=== PATIENT | male | born 1975 | race Caucasian/White ===

== ENCOUNTER 2019-02-04 14:13 | Emergency (ER) | payer SELFPAY ==
[2019-02-04 14:14] VITALS: BP 134/84; PULSE 87; RESP 14; TEMP 36.5; O2SAT 95; BMI 22.6
--- NOTE | 2019-02-04 14:25 | RAD_ITS ---
STUDY: X-RAY CHEST REASON FOR EXAM: Male, 43 years old. Unresponsive. TECHNIQUE: Single AP portable view of the chest. COMPARISON: None. FINDINGS: EKG electrodes are seen. The lungs are clear and expanded. There is no demonstrated pleural abnormality. Normal size heart. Normal mediastinum and tammie. Normal visualized pulmonary arteries. Normal visualized aortic arch and descending thoracic aorta. There are degenerative changes of the visualized thoracic spine. Normal visualized ribs, clavicles, and shoulders. There is no demonstrated abnormality of the visualized soft tissue structures of the upper abdomen. RAD/Chest 1 View (Portable) IMPRESSION: Normal x-ray examination of the chest. Electronically Signed: Aramis Schaefer, at 15:04 EDT , Service support ,
--- NOTE | 2019-02-04 14:26 | EKG12_ITS ---
Test Reason : OVERDOSE Blood Pressure : / mmHG Vent. Rate : 089 BPM Atrial Rate : 089 BPM P-R Int : 140 ms QRS Dur : 092 ms QT Int : 382 ms P-R-T Axes : 077 057 007 degrees QTc Int : 464 ms Normal sinus rhythm Right atrial enlargement Minimal voltage criteria for LVH, may be normal variant Borderline ECG Confirmed by ÁNGEL FOSTER, JOSE DAVID ([id number]), editor in chief newspaper JACK ABEL ([id number]) on 02/06/2019 11:39:14 AM Referred By: CARMINE Confirmed By:KEVIN NEAL MD
[2019-02-04] MEDS: Naloxone 2 MG/2 ML Syringe IV (14:27)
[2019-02-04] MEDS: 0.9% Normal Saline 1,000 ML 1000 ML IV (14:27)
--- NOTE | 2019-02-04 14:31 | NURSING ---
NO OLD EKGS
[2019-02-04 15:16] LABS: Absolute Neutrophil Count 4.3 X10^3/uL (2.0-7.7); Basophil# 0.07 X10^3/uL; Eosinophil# 0.26 X10^3/uL; Eosinophils% 3.6 % (0-5); Hematocrit 38.7 % (40-54); Hemoglobin 12.8 g/dL (13.0-16.5); Lymphocyte % 26.2 % (19-41); Mean Corp Hgb Conc 33.1 g/dL (32-36); Mean Corpuscular Volume 90.6 fL (80-94); Mean Platelet Vol. 9.5 fl (6.2-12.0); Monocyte# 0.69 X10^3/uL; Monocyte% 9.5 % (0-10); NRBC Flagged by Analyzer 0 % (0-5); Neutrophil % 59.4 % (47-70); Platelet Count 343 K/mm3 (150-450); RBC Distribution Width CV 12.7 % (11.6-14.6); RBC Distribution Width SD 41.9 fl (35.1-43.9); Red Blood Count 4.27 M/mm3 (4.6-6.2); White Blood Count 7.2 K/mm3 (4.4-11.0)
[2019-02-04 15:17] VITALS: BP 130/93; PULSE 78; RESP 15; O2SAT 94
--- NOTE | 2019-02-04 15:21 | ED.RN ---
ATTEMPTED TO CALL NEXT OF KIN FOR MEDICAL HISTORY, THE NUMBER ON FILE WAS NOT WORKING.
[2019-02-04 15:35] LABS: Anion Gap 5 (5-15); BUN 20 mg/dL (7-18); BUN/Creat Ratio 21.3 RATIO (10-20); Calcium,Total 8.4 mg/dL (8.5-10.1); Chloride 110 mmol/L (98-107); Creatinine, Serum 0.94 mg/dL (0.70-1.30); EST Glomerular Filtration Rate 93 mL/min (>60); Est Glom Filt Rate - Afr Amer 113 mL/min (>60); Estimated Creatinine Clearance 103.82 ml/min; Glucose 102 mg/dL (74-106); Sodium Level 143 mmol/L (136-145)
[2019-02-04 16:11] VITALS: BP 129/69
--- NOTE | 2019-02-04 16:54 | ED.DCSUM_ITS ---
- ER Visit Summary Date of Service: 02/04/19 Chief Complaint: Overdose History of Present Illness: The patient is a 43 M who presents with an overdose. Patient was found behind a building and was unresponsive. EMS noted patient had pinpoint pupils and administered 2 mg of intranasal Narcan. Patient had s ome improvement with this. Patient is still sleeping and nonverbal but is breathing. Patient does not answer questions appropriately. Physical Examination: Vital signs are stable. Patient is afebrile. Patient no acute distress. Pupils are 2 mm and reactive bilaterally. Oral mucosa is pink and moist. Neck is supple. Trachea is midline. There is no JVD noted. Heart was regular rate and rhythm. Lungs are clear and equal bilaterally. Abdomen is soft and nontender. Cranial nerves II through XII are grossly intact. Patient is moving all extremities without difficulty. Patient response to tactile stimulation. Test Results: EKG showed a normal sinus rhythm with a rate of 89. There are no acute ST or T wave changes. There is minimal criteria for LVH. CBC was normal. Basic metabolic profile was normal. Emergency Department Course and Treatment: Patient was given another dose of intravenous Narcan here. Patient was more arousable after this. Patient still does not answer questions but is moving all extremities. On reevaluation, patient is more awake and alert. Patient states he wants to leave. CT scan of the brain was ordered however, the patient does not want this done. Patient is more awake and alert and is capable of refusing. Patient was instructed to follow-up with his primary care physician in 7 to 10 days. Disposition: Discharge home Impression: Opiate overdose This note was generated with [employer] dictation software. It may contain incorrect words, spelling, and punctuation that were not noted in review of the chart prior to signing Capacity - Capacity Assessment Tool Can the patient make a choice & communicate that choice?: Yes Can the patient understand benefits, risks and alternatives?: Yes Can the patient make a logical, rational choice?: Yes Is the choice the patient makes consistent w/ their values?: Yes Is there an impending, emergent risk to the patient?: No ED Disposition - Plan for ED Patient: Disposition: Home or Assisted Living Diagnosis: Opiate overdose Instructions: Opiate Abuse, OVERDOSE, Opiate Referrals: Jemal Montalvo MD [Primary Care Provider] - 5-7 Days
[2019-02-04 17:08] VITALS: BP 128/80; PULSE 54; RESP 14; O2SAT 99
[2019-02-04 17:24] VITALS: PULSE 78; RESP 18
== END 2019-02-04 17:26 | disposition home or self-care (01) ==
PROVIDERS: Emergency Provider Emergency Medicine
DX: T40.601A Poisoning by unspecified narcotics, accidental (unintentional), initial encounter (principal); R41.82 Altered mental status, unspecified; Y92.89 Other specified places as the place of occurrence of the external cause
CPT/HCPCS: 71045; 80048; 85025; 93005; 96361; 96374; 99285; J7030

== ENCOUNTER 2019-04-29 03:30 | Inpatient (IN) | payer SELFPAY ==
[2019-04-29] VITALS (11 sets, daily range): BP systolic 132–168; BP diastolic 73–100; PULSE 65–91; RESP 16–20; TEMP 36.6–37.4; O2SAT 95–100; BMI 23.2; BMI 22.9; BMI 23.0
--- NOTE | 2019-04-29 03:39 | CT_ITS ---
STUDY: CT ABDOMEN AND PELVIS WITH CONTRAST REASON FOR EXAM: Male, 44 years old. Diarrhea, abdominal pain RADIATION DOSAGE (If Supplied By Facility): CTDIvol = ( 9.22 ) mGy, DLP = ( 428.54 ) mGycm TECHNIQUE: Transaxial images were obtained from the dome of the diaphragm to the symphysis pubis without oral contrast. IV 100ML ISOVUE 300 was administered. Sagittal and coronal images were reconstructed. Individualized dose optimization techniques were used for this CT. COMPARISON: None. FINDINGS: The visualized lung bases are unremarkable. The visualized portions of the heart are within normal limits. Normal liver. Normal gallbladder and extrahepatic biliary system. Normal spleen. Normal pancreas. Normal bilateral adrenal glands. Normal right kidney. Normal left kidney. There is massive distention of the stomach which measures 26 cm. There is significant distention of small bowel loops with transition point within the right lower quadrant. There is mild wall thickening and enhancement. There is mild enhancement with wall thickening of the rectosigmoid region. There is likely prior appendectomy with multiple surgical olegario in the right lower quadrant. Normal abdominal aorta. Normal inferior vena cava. Normal retroperitoneum. Normal urinary bladder. Normal abdominal wall. Normal osseous structures. There are hypodensities within both common femoral veins. CT/Abdomen/Pelvis W IV Cont ONLY IMPRESSION: Findings suspicious for small bowel obstruction or partial small bowel obstruction, transition point within the right lower pelvis. Ileus also cannot be excluded. Massive distended stomach likely ileus cannot exclude gastric outlet obstruction Mildly enhancing small bowel loops as well as colon involving the rectosigmoid region suspicious for enteritis/colitis Bilateral hypodensities within the common femoral veins which may be secondary to timing of the bolus contrast with unopacified vessel however thrombosis cannot BE excluded bilateral lower extremity venous Doppler ultrasound is recommended Periportal hepatic edema which is nonspecific and can be associated with hepatitis or cholangitis. This should be correlated with clinical history and laboratory values Prior appendectomy Electronically Signed: Rudy Kennedy, at 5:00 EST Tel , Service support ,
[2019-04-29] MEDS: 0.9% Normal Saline 1,000 ML 999 ML IV ×2 (03:48→04:42)
[2019-04-29 03:49] LABS: Absolute Lymphocyte Count 1.53 X10^3/uL (0.83-4.51); Absolute Neutrophil Count 8.4 X10^3/uL (2.0-7.7); Basophil# 0.02 X10^3/uL; Basophil% 0.2 % (0-1); Eosinophil# 0.08 X10^3/uL; Eosinophils% 0.7 % (0-5); Hematocrit 39.5 % (40-54); Hemoglobin 13.7 g/dL (13.0-16.5); Lymphocyte # 1.53 X10^3/ul (4.0); Lymphocyte % 14.2 % (19-41); Mean Corp Hgb Conc 34.7 g/dL (32-36); Mean Corpuscular Hgb 29.7 pg (27.0-32.0); Mean Corpuscular Volume 85.7 fL (80-94); Mean Platelet Vol. 10.9 fl (6.2-12.0); Monocyte# 0.65 X10^3/uL; Monocyte% 6.1 % (0-10); NRBC Flagged by Analyzer 0 % (0-5); Neutrophil # 8.43 X10^3/uL (2.7-7.7); Neutrophil % 78.5 % (47-70); Platelet Count 321 K/mm3 (150-450); RBC Distribution Width CV 17.7 % (11.6-14.6); RBC Distribution Width SD 55.3 fl (35.1-43.9); Red Blood Count 4.61 M/mm3 (4.6-6.2); White Blood Count 10.7 K/mm3 (4.4-11.0)
[2019-04-29] MEDS: Ondansetron 4 MG/2 ML Vial IV ×2 (03:49→05:52)
[2019-04-29] MEDS: Morphine 4 MG/ML Syringe IV ×2 (03:50→05:52)
--- NOTE | 2019-04-29 04:02 | ED.VISSUMM ---
- ER Visit Summary Date of Service: 04/29/19 Chief Complaint: Abdominal pain History of Present Illness: The patient is a 44 M who states about a week ago he began to experience some abdominal pain and was having diarrhea. Several days ago he states that he developed jaundice feels that it is getting better. He reports no fevers or vomiting but does note nausea. He feels bloated/distended. He has been able to eat though very little. He notes a history of IV drug use but not in the past year. 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 Physical Examination: Afebrile vital signs are stable Gen: Well-nourished well-developed Head: Normocephalic atraumatic Eyes: Perrl EOMI + scleral icterus ENT: TMs clear no rhinorrhea moist mucous membranes Neck: Supple no lymphadenopathy no JVD nontender CVS: Regular rate rhythm no murmurs normal S1-S2 Respiratory: No distress clear to auscultation bilaterally chest nontender Abdomen: Patient feels distended and mildly tender with no guarding or rebound normal bowel sounds no masses Back: Nontender Extremity: Nontender no edema Skin: Normal color no rash Neuro: alert orientated ?3 CN II-XII intact normal strength sensation no asterixis Psych: Normal affect normal mood Test Results: White count is elevated at 10.7 hemoglobin 13.7. Chemistries negative. Liver enzymes showed total bilirubin of 5.6 alk phos 252 ALT of 1263 AST of 204 lipase 103. INR 1.3 with a PTT of 35.3. Lactic acid 1.9. CT of the abdomen pelvis was concerning for small bowel obstruction versus partial small bowel obstruction with an apparent transition point in the right lower pelvis. Patient has had a appendectomy. There is some enhancing small bowel loops as well as the colon suspicious for enteritis/colitis. There is significant distention of the stomach. Periportal hepatic edema Emergency Department Course and Treatment: I ordered a acute hepatitis panel. Perhaps this is ileus related to hepatitis A? An NG tube was placed. Patient received IV fluids morphine and Zofran. Plan is admission to the hospital. Impression: 1. Acute hepatitis 2. Ileus This note was generated with [employer] dictation software. It may contain incorrect words, spelling, and punctuation that were not noted in review of the chart prior to signing ED Disposition - Plan for ED Patient: Referrals: Care Physician,No Primary [Primary Care Provider] -
[2019-04-29 04:07] LABS: AST(SGOT) 204 U/L (15-37); Alanine Aminotransfer ALT/SGPT 1263 U/L (16-61); Albumin, Serum 2.8 g/dL (3.2-5.0); Alkaline Phosphatase 252 U/L (45-117); Anion Gap 4 (5-15); BUN 11 mg/dL (7-18); BUN/Creat Ratio 14.1 RATIO (10-20); Bilirubin, Direct 4.16 mg/dL (0.00-0.30); Calcium,Total 8.1 mg/dL (8.5-10.1); Chloride 104 mmol/L (98-107); Creatinine, Serum 0.78 mg/dL (0.70-1.30); EST Glomerular Filtration Rate 115 mL/min (>60); Est Glom Filt Rate - Afr Amer 139 mL/min (>60); Estimated Creatinine Clearance 126.09 ml/min; Globulin 4.8 g/dL (2.2-4.2); Glucose 105 mg/dL (74-106); Lipase 106 U/L (73-393); Potassium 3.5 mmol/L (3.5-5.1); Protein, Total 7.6 g/dL (6.4-8.2); Sodium Level 138 mmol/L (136-145)
[2019-04-29 04:10] LABS: International Normalized Ratio 1.3; Partial Thromboplast Time 35.3 Seconds (24.1-36.2); Prothrombin Time (Protime)PT. 15.7 SECONDS (11.7-14.9)
[2019-04-29 05:11] LABS: Lactic Acid 1.9 mmol/L (0.4-2.0)
--- NOTE | 2019-04-29 05:11 | RAD_ITS ---
STUDY: X-RAY - ABDOMEN/PELVIS REASON FOR EXAM: Male, 44 years old. NG tube placement TECHNIQUE: KUB COMPARISON: CT abdomen and pelvis secondary FINDINGS: Normal visualized lung bases. There has been placement of an orogastric tube with the tip in the stomach. There is decreased distention of the stomach. There are multiple densities within the stomach unchanged likely food particles. This should be correlated with patient's clinical history There is stable significant small bowel dilatation. There are surgical loops within the right lower quadrant of the abdomen. The lower pelvis is excluded from the [id number]. There is no demonstrated free abdominal air. The visualized liver, spleen and kidneys are grossly normal in size and morphology. Normal soft tissue structures. Normal visualized osseous structures. RAD/Abdomen Single View (Portable) IMPRESSION: placement of an orogastric tube with the tip in the stomach. There is decreased distention of the stomach. There are multiple densities within the stomach unchanged likely food particles. This should be correlated with patient's clinical history Persistent significant dilated loops of small bowel suspicious for small bowel obstruction Surgical clips within the right lower quadrant of the abdomen likely corresponding to patient's prior appendectomy The lower pelvis is excluded from the [id number]. Electronically Signed: Rudy Kennedy, at 6:30 EST Tel , Service support ,
[2019-04-29] MEDS: Lidocaine 4% 5 ML Ampul 2 ML INHALATION (05:52)
[2019-04-29] MEDS: 0.9% Normal Saline 1,000 ML 150 ML IV ×3 (05:53→22:31)
--- NOTE | 2019-04-29 06:29 | PCM.HP.STD ---
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 He also noticed a yellow tinge to his skin as well as very dark urine and light stools that seem to be improving however yesterday suddenly everything worsened again with his abdominal pain. Also at that time he started having diarrhea which also improved. No fevers or chills, he did have some nausea but no vomiting. He does have a history of IV drug use but nothing recently he denies any alcohol use. In the ER vital signs are fairly normal though he was hypertensive, he had lab work with an elevated AST to 204 and ALT to 1263, with a total bilirubin of 5.6 and a direct bilirubin of 4.16. Lipase was normal, and he had a normal white count. CT scan of his abdomen and pelvis demonstrated a distended stomach and distended loops of small bowel with a possible transition point in the right lower quadrant. He does have a history of a previous appendectomy though he is never had a previous small bowel obstruction. He feels much better since an NG tube was placed in the ER with almost 400 cc out. Past Medical History Allergies No Known Allergies Allergy (Verified 02/04/19 14:29) Home Medications: Ambulatory Orders Medication Instructions Recorded NK 04/29/19 Surgical History: appendectomy Smoking Status: Current every day smoker Tobacco Use: Cigarettes Alcohol: None Drugs: - - IV drug use over a year ago - *Family History Maternal History Items: COPD, Heart Disease Paternal History Items: Cancer, Heart Disease Review of Systems Constitutional: Denies: Chills, Fever, Weight Change HEENT: Denies: Head Aches, Sinus Congestion, Sinus Drainage Cardiovascular: Denies: Chest Pain, Palpitations Respiratory: Denies: Cough, Shortness of breath at rest, Sputum production Gastrointestinal: Reports: Abdominal Pain, Diarrhea, Nausea. Denies: Vomiting Genitourinary: Denies: Dysuria Musculoskeletal: Denies: Joint Pain, Joint Tenderness Skin: Reports: Jaundice. Denies: Rash, Wounds Neurological: Denies: Numbness, Tingling, Focal weakness Psychiatric: Denies: Anxiety, Depression Hematologic/ Lymphatic: Denies: Easy Bruising, Easy Bleeding VTE Information - Inpt Only VTE Present on Admission: No - Physical Exam Vitals/I&O's: Vital Signs Temp Pulse Resp BP Pulse Ox 98.6 F 78 16 156/99 H 95 04/29/19 06:22 04/29/19 06:22 04/29/19 06:22 04/29/19 06:22 04/29/19 06:22 Oxygen Delivery Method Room Air Weight: 161 lb 13.109 oz Body Mass Index (BMI) 23.2 Intake and Output for Last 24 Hours 04/27/19 04/28/19 04/29/19 23:59 23:59 23:59 Intake Total 1999 Balance 1999 General: Alert, Oriented x3, Cooperative, No apparent distress HEENT: Atraumatic, PERRLA, EOMI, Normocephalic Oral: Dry Mucosa Neck: Supple, No JVD Lungs: Clear to auscultation, Normal air movement, No rhonchi, No wheeze, No rales Cardiovascular: Regular rate, Regular Rhythm, Normal S1, Normal S2, No murmurs Abdomen: Soft, Non-Distended, No Hepato-splenomegaly, Tender - Over the general abdomen, - - NG tube in place Extremities: No edema, Capillary Refill Less than 3 Seconds Skin: No rashes, No breakdown, - - No appearance of jaundice Neurological: Neuro grossly intact, Sensory exam intact to light touch and pain Psych/Mental Status: Normal Affect, Appropriate Laboratory Results 04/29/19 03:40: WBC 10.7, RBC 4.61, Hgb 13.7, Hct 39.5 L, MCV 85.7, MCH 29.7, MCHC 34.7, RDW Std Deviation 55.3 H, RDW Coeff of Jass 17.7 H, Plt Count 321, MPV 10.9, Immature Gran % (Auto) 0.300, Neut % (Auto) 78.5 H, Lymph % (Auto) 14.2 L, Pope % (Auto) 6.1, Eos % (Auto) 0.7, Baso % (Auto) 0.2, Absolute Neuts (auto) 8.4 H, Absolute Lymphs (auto) 1.53, Nucleated RBC % 0 04/29/19 03:40: Sodium 138, Potassium 3.5, Chloride 104, Carbon Dioxide 30.0, Anion Gap 4 L, BUN 11, Creatinine 0.78, Estim Creat Clear Calc 126.09, Est GFR (MDRD) Af Amer 139, Est GFR (MDRD) Non-Af 115, BUN/Creatinine Ratio 14.1, Glucose 105, Calcium 8.1 L, Total Bilirubin 5.60 H, Direct Bilirubin 4.16 H, AST 204 H, ALT 1263 H, Alkaline Phosphatase 252 H, Total Protein 7.6, Albumin 2.8 L, Globulin 4.8 H, Lipase 106 04/29/19 03:54: PT 15.7 H, INR 1.3, APTT 35.3 04/29/19 04:38: Lactic Acid 1.9 04/29/19 05:55: Hepatitis A IgM Ab Pending, Hep Bs Antigen Pending, Hep B Core IgM Ab Pending, Hepatitis C Ab (EIA) Pending Current Medications Sodium Chloride () 1,000 mls @ 150 mls/hr IV .[id number] [facility] Last Admin: 04/29/19 05:53 Dose: 150 mls/hr Documented by: Assessment/Plan 1. SBO/elevated LFTs -NG tube was placed and general surgery was consulted for assistance, will place NG tube to low intermittent wall suction -Hepatitis panel has been sent from the ER -Continue with IV fluids -We will recheck a CMP and a CBC in the morning -N.p.o. -Continue with Zofran, will hold off on any pain meds since he is feeling much better after the NG tube was placed DVT: Lovenox Code Visit Inpatient E&M: 94456 Init Hosp L2
--- NOTE | 2019-04-29 06:40 | NURSING ---
114 k[facility]onis hepatitis and sbo
--- NOTE | 2019-04-29 08:39 | PCM.PN.BLA ---
Progress Note Patient is a 44-year-old gentleman with history of IVDA admitted with abdominal pain and jaundice. CT of the abdomen was suspicious for small bowel obstruction/partial small bowel obstruction. Patient in addition was found to have elevated liver function tests consistent with acute hepatitis admitted to regular nursing for further management GENERAL: cooperative HEENT: NG-tube in place; EYES;icteric, NECK; supple, normal thyroid, RESPIRATORY: Diminished to auscultation CARDIOVASCULAR: Regular S1 S2, GI: soft, normoactive bowel sounds, : No Renal angle tenderness; EXTREMITIES: No edema, no clubbing, MUSCULOSKELETAL: no muscle waisting NEURO: Awake; no lateralizing signs. SKIN: No Rash PSYCH; Flat affect 1. Acute hepatitis ?Suspected to be viral in etiology CT of the abdomen obtained demonstrated demonstrated portal hepatic edema 2. Partial small bowel obstruction to be secondary to adhesions with the patient previous history of appendectomy ?Managed conservatively with NG tube to suction IV fluids and bowel rest. 3. History of IVDA ~With recent evaluation in the ED in January 2019 for opioid overdose 4. DVT prophylaxis ~ on enoxaparin STROKE Vital Signs/Narrative: Vital Signs Temp Pulse Resp BP Pulse Ox 04/29/19 06:55 98.2 F 77 16 147/96 H 97 04/29/19 06:22 98.6 F 78 16 156/99 H 95 04/29/19 06:04 98.5 F 86 16 156/99 H 95 04/29/19 05:57 66 16 04/29/19 05:01 99.3 F H 65 16 168/96 H 100 04/29/19 04:42 99.3 F H 65 16 152/94 H 100
[2019-04-29] MEDS: Ketorolac 15 MG/ML Vial IV (09:50)
[2019-04-29] MEDS: Enoxaparin 40 MG/0.4 ML Syringe SC (10:08)
--- NOTE | 2019-04-29 10:50 | CON.PCM_ITS ---
Problem List (1) Small bowel obstruction Status: Acute Reason for Consult Date of Consultation: 04/29/19 Reason for Consultation: Small bowel obstruction History of Present Illness: The patient is a 44 year old M who presented to the ED with worsening abdominal pain. Patient was sleeping during the entire interview. Significant other was present in the room. Patient apparently started to have abdominal pain approximately 4-5 days ago. He was noted to have diarrhea/gas/bloating. Patient has had nausea, vomiting and lack of appetite. Abdominal pain became worse last night and he presented to the ED. Patient has not passed gas and has not had a bowel movement since admission. Patient has a history of IV drug use. he was recently evaluated in the ED for an opioid overdose in January. Per significant other, she is unsure if his uses IV drugs anymore. She notes he does not talk about that with me. When asked if he continues with opioid use, she shook her head yes. Patient has never had previous myocardial infarction, blood clots or stroke. He does not follow-up with a family doctor regularly. Patient did have his appendix out approximately greater 15 years ago according to the girlfriend. Through reviewing other notes, the patient was noted to have been in half-way for 5 1/2 years and was out in 2016. CT scan of the abdomen and pelvis completed in the ED was notable for Findings suspicious for small bowel obstruction or partial small bowel obstruction, transition point within the right lower pelvis. Ileus also cannot be excluded. Massive distended stomach likely ileus cannot exclude gastric outlet obstruction Mildly enhancing small bowel loops as well as colon involving the rectosigmoid region suspicious for enteritis/colitis Bilateral hypodensities within the common femoral veins which may be secondary to timing of the bolus contrast with unopacified vessel however thrombosis cannot BE excluded bilateral lower extremity venous Doppler ultrasound is recommended Periportal hepatic edema which is nonspecific and can be associated with hepatitis or cholangitis. This should be correlated with clinical history and laboratory values Prior appendectomy Lab were notable for elevated liver enzymes. WBC was 10.7 with left shift. Hepatitis panel is pending. NG tube was placed in the ED with 400 cc output. Patient had immediate relief. Patient has since put out approximately 150 cc of light brownish fluid. Past Medical History Allergies No Known Allergies Allergy (Verified 02/04/19 14:29) Home Medications: Ambulatory Orders Medication Instructions Recorded NK 04/29/19 Surgical History: appendectomy Psychiatric History: No pertinent psych hx Smoking Status: Current every day smoker Tobacco Use: Cigarettes Alcohol: None Drugs: - - IV drug use over a year ago - *Family History Maternal History Items: COPD, Heart Disease Paternal History Items: Cancer, Heart Disease Review of Systems Constitutional: Reports: Anorexia, Malaise, Weakness, Fatigue HEENT: Denies: Head Aches, Sinus Congestion, Sinus Drainage Cardiovascular: Denies: Chest Pain, Palpitations Respiratory: Denies: Cough, Shortness of breath at rest, Sputum production Gastrointestinal: Reports: Abdominal Pain, Diarrhea, Nausea, Vomiting Genitourinary: Denies: Dysuria Musculoskeletal: Denies: Joint Pain, Joint Tenderness Skin: Reports: Jaundice Neurological: Denies: Numbness, Tingling, Focal weakness Psychiatric: Denies: Anxiety, Depression, Homicidal Ideations, Suicidal Ideations Hematologic/ Lymphatic: Denies: Easy Bruising, Easy Bleeding Patient Problems: Active and Suspected Problems Small bowel obstruction (Acute) - Physical Exam Vitals/I&O's: Vital Signs Temp Pulse Resp BP Pulse Ox 98.1 F 71 16 151/93 H 96 04/29/19 09:32 04/29/19 09:32 04/29/19 09:32 04/29/19 09:32 04/29/19 09:32 Oxygen Delivery Method Room Air Weight: 160 lb 0.889 oz Body Mass Index (BMI) 22.9 Intake and Output for Last 24 Hours 04/27/19 04/28/19 04/29/19 23:59 23:59 23:59 Intake Total 1999 Balance 1999 General: Lethargic - Not easy to arouse, Non-Cooperative HEENT: Atraumatic, PERRLA, EOMI, Normocephalic Neck: Supple, No JVD, Negative Carotid Bruits Lungs: Clear to auscultation, Normal air movement Cardiovascular: Regular rate, No murmurs Abdomen: Soft, Non-Distended, Hypoactive Bowel Sounds, Tender - generalized. Patient did make a painful face during palpation, however did not open eyes Extremities: No edema, Capillary Refill Less than 3 Seconds Skin: - - Tannish color. Tattoos upper extremities bilaterally, on the abdomen Musculoskeletal: No Tenderness to Palpation of Joints or Extremities Neurological: Neuro grossly intact - Unable to assess mental status as patient was not cooperative in waking up. Laboratory Results 04/29/19 03:40: WBC 10.7, RBC 4.61, Hgb 13.7, Hct 39.5 L, MCV 85.7, MCH 29.7, MCHC 34.7, RDW Std Deviation 55.3 H, RDW Coeff of Jass 17.7 H, Plt Count 321, MPV 10.9, Immature Gran % (Auto) 0.300, Neut % (Auto) 78.5 H, Lymph % (Auto) 14.2 L, [place] % (Auto) 6.1, Eos % (Auto) 0.7, Baso % (Auto) 0.2, Absolute Neuts (auto) 8.4 H, Absolute Lymphs (auto) 1.53, Nucleated RBC % 0 04/29/19 03:40: Sodium 138, Potassium 3.5, Chloride 104, Carbon Dioxide 30.0, Anion Gap 4 L, BUN 11, Creatinine 0.78, Estim Creat Clear Calc 126.09, Est GFR (MDRD) Af Amer 139, Est GFR (MDRD) Non-Af 115, BUN/Creatinine Ratio 14.1, Glucose 105, Calcium 8.1 L, Total Bilirubin 5.60 H, Direct Bilirubin 4.16 H, AST 204 H, ALT 1263 H, Alkaline Phosphatase 252 H, Total Protein 7.6, Albumin 2.8 L, Globulin 4.8 H, Lipase 106 04/29/19 03:54: PT 15.7 H, INR 1.3, APTT 35.3 04/29/19 04:38: Lactic Acid 1.9 04/29/19 05:55: Hepatitis A IgM Ab Pending, Hep Bs Antigen Pending, Hep B Core IgM Ab Pending, Hepatitis C Ab (EIA) Pending Current Medications Enoxaparin Sodium (Lovenox) 40 mg SC DAILY [facility] Last Admin: 04/29/19 10:08 Dose: 40 mg Documented by: Sodium Chloride () 1,000 mls @ 150 mls/hr IV .[id number] [facility] Last Admin: 04/29/19 05:53 Dose: 150 mls/hr Documented by: Sodium Chloride () 250 mls @ 15 mls/hr IV .[id number] PRN PRN Reason: Saline Flush Pantoprazole Sodium 40 mg/ (Sodium Chloride) 110 mls @ 330 mls/hr IV Q12 [facility] Last Admin: 04/29/19 10:04 Dose: 330 mls/hr Documented by: Ketorolac Tromethamine (Toradol) 15 mg IV Q6H PRN PRN PRN Reason: Pain/Inflammation Stop: 05/04/19 08:54 Last Admin: 04/29/19 09:50 Dose: 15 mg Documented by: Ondansetron HCl (Zofran) 4 mg IV Q8H PRN PRN PRN Reason: NAUSEA/VOMITING Sodium Chloride () 10 - 40 ml IV UD PRN PRN Reason: SALINE FLUSH Assessment/Plan All Active Problems Small bowel obstruction (Acute) I have been consulted in conjunction with Dr. Nichols. Impression: small bowel obstruction. suspicion for hepatitis. Plan: I have discussed this patient in conjunction with Dr. Nichols. Recommend NPO. Continue NG tube. Await bowel function. No surgical intervention at this time. Hepatitis panel pending. Patient again during the entire visit slept through. He would answer yes or no questions after shaking him to wake up. Patient was provided the time to ask questions. The significant other was offered the opportunity to ask questions and have them answered. We will order lab work tomorrow. Dr. Nichols will independently evaluate this patient. Thank you for the opportunity to care for this patient. Code Visit Office Visits / Consults: [id number] IP Consult L3
--- NOTE | 2019-04-29 14:16 | CASEMGMT ---
DIAZ attempted to see patient for self pay, however he is sleeping. DIAZ will check back again. Keeley BYRNES MSW
--- NOTE | 2019-04-29 15:16 | CASEMGMT ---
SW did briefly speak with patient. He was not feeling well and would not open his eyes. SW did ask if he has applied for Medicaid. He said he has not, but he needs to. SW left a Medicaid application with patient and told him SW will check back tomorrow. Keeley CHAMPION
--- NOTE | 2019-04-29 17:15 | NURSING ---
pt had been sleeping in bed all day and very hard to arouse. upon entering room, pt was noted to have unhooked his ng tube. Iv was stopped d/t pt stating that he wanted out of there and was going AMA.
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
[2019-04-30 03:00] VITALS: BP 131/97; PULSE 96; RESP 16; TEMP 36.8; O2SAT 96
[2019-04-30 03:06] LABS: Bacteria 0 SEEN /hpf (None Seen); Mucous, Urine 0 SEEN /hpf (<or=2+); Red Blood Cells-Urine 0 SEEN /hpf (0-5); Squamous Epithelial Cells - UA 0 SEEN /hpf (0-5); White Blood Cells 0 SEEN /hpf (0-5)
[2019-04-30 03:35] LABS: Color, Urine Yellow (Yellow); Glucose, Dipstick Normal (Normal); Ketone-Dipstick Negative (Negative); Leukocyte Esterase-Dipstick Negative /ul (Negative); Nitrite-Dipstick Negative (Negative); Occult Blood-Urine Negative /ul (Negative); Protein-Dipstick Negative (Negative); Urine Clarity Clear (Clear); Urine Urobilinogen 8 mg/dl (Normal); Urine pH 6.5 (5.0 - 8.0)
[2019-04-30 03:39] LABS: Urine Bilirubin Dipstick 1 mg/dL (Negative)
[2019-04-30 03:41] LABS: Amorphous Sediment RARE
[2019-04-30] MEDS: 0.9% Normal Saline 1,000 ML 150 ML IV (05:42)
--- NOTE | 2019-04-30 05:55 | RAD_ITS ---
STUDY: X-RAY - ABDOMEN/PELVIS REASON FOR EXAM: Male, 44 years old. Possible small bowel obstruction TECHNIQUE: Flat and upright abdomen COMPARISON: 04/29/2019. FINDINGS: There are mild bibasilar pulmonary opacities. There is improvement of the bowel gas pattern with less distention of small bowel loops. There is moderate colonic fecal load. There is surgical clips within right mid abdomen. There is no demonstrated free abdominal air. The visualized liver, spleen and kidneys are grossly normal in size and morphology. Normal soft tissue structures. Normal visualized osseous structures. RAD/Abd Decub and/or Erect(Portabl IMPRESSION: Improving bowel gas pattern with decreased distention of small bowel loops likely representing partial small bowel obstruction Removal of the orogastric tube Mild bibasilar pulmonary opacities Moderate colonic fecal load Electronically Signed: Rudy Kennedy, at 6:25 EST Tel , Service support ,
[2019-04-30 06:43] LABS: Absolute Lymphocyte Count 2.33 X10^3/uL (0.83-4.51); Absolute Neutrophil Count 3.2 X10^3/uL (2.0-7.7); Basophil# 0.02 X10^3/uL; Basophil% 0.3 % (0-1); Eosinophil# 0.16 X10^3/uL; Eosinophils% 2.5 % (0-5); Hematocrit 34.3 % (40-54); Lymphocyte # 2.33 X10^3/ul (4.0); Lymphocyte % 36.3 % (19-41); Mean Corpuscular Hgb 29.6 pg (27.0-32.0); Mean Corpuscular Volume 84.7 fL (80-94); Mean Platelet Vol. 11.1 fl (6.2-12.0); Monocyte# 0.67 X10^3/uL; Monocyte% 10.5 % (0-10); NRBC Flagged by Analyzer 0 % (0-5); Neutrophil % 49.9 % (47-70); Platelet Count 276 K/mm3 (150-450); RBC Distribution Width CV 17.5 % (11.6-14.6); RBC Distribution Width SD 54.5 fl (35.1-43.9); Red Blood Count 4.05 M/mm3 (4.6-6.2); White Blood Count 6.4 K/mm3 (4.4-11.0)
[2019-04-30 07:06] LABS: AST(SGOT) 117 U/L (15-37); Alanine Aminotransfer ALT/SGPT 708 U/L (16-61); Alkaline Phosphatase 215 U/L (45-117); Anion Gap 4 (5-15); BUN 5 mg/dL (7-18); BUN/Creat Ratio 9.3 RATIO (10-20); Bilirubin, Direct 2.43 mg/dL (0.00-0.30); Calcium,Total 7.3 mg/dL (8.5-10.1); Chloride 108 mmol/L (98-107); Creatinine, Serum 0.54 mg/dL (0.70-1.30); EST Glomerular Filtration Rate 177 mL/min (>60); Est Glom Filt Rate - Afr Amer 214 mL/min (>60); Estimated Creatinine Clearance 181.13 ml/min; Glucose 110 mg/dL (74-106); Magnesium 1.7 mg/dL (1.6-2.6); Potassium 3.1 mmol/L (3.5-5.1); Sodium Level 141 mmol/L (136-145)
[2019-04-30 08:33] LABS: HEPATITIS B SURFACE AG Negative (Negative); Hepatitis A IgM Antibody Positive (Negative); Hepatitis B Core AB IgM Negative (Negative)
--- NOTE | 2019-04-30 08:59 | PN.SURG_ITS ---
Patient Problems: Active and Suspected Problems Small bowel obstruction (Acute) Subjective: Patient evaluated resting comfortably in bed. He is much more alert today. He pulled his NG tube out yesterday. He denies flatus or BM. He is tolerating clear liquids. He denies nausea, vomiting. He notes his abdomen is sore. He is feeling much better. - Physical Exam Vitals/I&O's: Vital Signs Temp Pulse Resp BP Pulse Ox 98.2 F 96 16 131/97 H 96 04/30/19 03:00 04/30/19 03:00 04/30/19 03:00 04/30/19 03:00 04/30/19 03:00 Oxygen Delivery Method Room Air Weight: 160 lb 0.889 oz Body Mass Index (BMI) 22.9 Intake and Output for Last 24 Hours 04/28/19 04/29/19 04/30/19 23:59 23:59 23:59 Intake Total 4070.0 / 4070.0 1840 / 1840 Output Total 500 / 500 1200 / 1200 Balance 3570.0 / 3570.0 640 / 640 General: Alert, Oriented x3, Cooperative Abdomen: Bowel Sounds Present, Soft, Distended - very slightly, Tender - slightly tender Laboratory Results 04/30/19 02:55: Urine Color Yellow, Urine Clarity Clear, Urine pH 6.5, Ur Specific [place] 1.010, Urine Protein Negative, Urine Glucose (UA) Normal, Urine Ketones Negative, Urine Occult Blood Negative, Urine Nitrite Negative, Urine Bilirubin 1 H, Urine Urobilinogen 8 H, Ur Leukocyte Esterase Negative, Urine RBC 0 SEEN, Urine WBC 0 SEEN, Ur Squamous Epith Cells 0 SEEN, Amorphous Sediment RARE, Urine Bacteria 0 SEEN, Urine Mucus 0 SEEN 04/30/19 06:10: WBC 6.4, RBC 4.05 L, Hgb 12.0 L, Hct 34.3 L, MCV 84.7, MCH 29.6, MCHC 35.0, RDW Std Deviation 54.5 H, RDW Coeff of Jass 17.5 H, Plt Count 276, MPV 11.1, Immature Gran % (Auto) 0.500, Neut % (Auto) 49.9, Lymph % (Auto) 36.3, [place] % (Auto) 10.5 H, Eos % (Auto) 2.5, Baso % (Auto) 0.3, Absolute Neuts (auto) 3.2, Absolute Lymphs (auto) 2.33, Nucleated RBC % 0 04/30/19 06:10: Sodium 141, Potassium 3.1 L, Chloride 108 H, Carbon Dioxide 29.0, Anion Gap 4 L, BUN 5 L, Creatinine 0.54 L, Estim Creat Clear Calc 181.13, Est GFR (MDRD) Af Amer 214, Est GFR (MDRD) Non-Af 177, BUN/Creatinine Ratio 9.3 L, Glucose 110 H, Calcium 7.3 L, Magnesium 1.7, Total Bilirubin 3.00 H, Direct Bilirubin 2.43 H, AST 117 H, ALT 708 H, Alkaline Phosphatase 215 H, Total Protein 6.0 L, Albumin 2.0 L, Globulin 4.0 Current Medications Enoxaparin Sodium (Lovenox) 40 mg SC DAILY [facility] Last Admin: 04/29/19 10:08 Dose: 40 mg Documented by: Sodium Chloride () 1,000 mls @ 150 mls/hr IV .Q6H40M [facility] Last Admin: 04/30/19 05:42 Dose: 150 mls/hr Documented by: Sodium Chloride () 250 mls @ 15 mls/hr IV .[id number] PRN PRN Reason: Saline Flush Pantoprazole Sodium 40 mg/ (Sodium Chloride) 110 mls @ 330 mls/hr IV Q12 [facility] Last Infusion: 04/29/19 22:53 Dose: Infused Documented by: Ketorolac Tromethamine (Toradol) 15 mg IV Q6H PRN PRN PRN Reason: Pain/Inflammation Stop: 05/04/19 08:54 Last Admin: 04/29/19 09:50 Dose: 15 mg Documented by: Ondansetron HCl (Zofran) 4 mg IV Q8H PRN PRN PRN Reason: NAUSEA/VOMITING Sodium Chloride () 10 - 40 ml IV UD PRN PRN Reason: SALINE FLUSH Throat Lozenges (Cepacol Sore Throat Lozenge) 2 lozenge MUCOUS MEM Q2H PRN PRN PRN Reason: sore throat, cough Medical Necessity - Tobacco Use Smoking Status: Current every day smoker Tobacco Use: Cigarettes Assessment/Plan All Active Problems Small bowel obstruction (Acute) I have been consulted in conjunction with Dr. Nichols. Partial small bowel obstruction, resolving. Hepatitis panel pending KUB reviewed demonstrating improvement in the bowel gas pattern. Increase to full liquid diet Encourage ambulation Will order repeat KUB for tomorrow morning We will continue to monitor this patient Code Visit Inpatient E&M: 55772 Subs Hosp L1
[2019-04-30 09:00] VITALS: BP 133/79; PULSE 81; RESP 16; TEMP 36.8; O2SAT 100
--- NOTE | 2019-04-30 09:47 | PCM.PN.HOSP ---
Patient Problems: Active and Suspected Problems Small bowel obstruction (Acute) Reason for Visit: Follow-up acute hepatitis and small bowel obstruction Subjective: Patient is a 44-year-old gentleman with history of IVDA admitted with abdominal pain and jaundice. CT of the abdomen was suspicious for small bowel obstruction/partial small bowel obstruction. Patient in addition was found to have elevated liver function tests consistent with acute hepatitis admitted to regular nursing for further management Objective: GENERAL: cooperative HEENT: Atraumatic EYES;icteric, NECK; supple, normal thyroid, RESPIRATORY: Diminished to auscultation CARDIOVASCULAR: Regular S1 S2, GI: soft, normoactive bowel sounds, : No Renal angle tenderness; EXTREMITIES: No edema, no clubbing, MUSCULOSKELETAL: no muscle waisting NEURO: Awake; no lateralizing signs. SKIN: Multiple extensive tattoos PSYCH; Flat affect Vitals/I&O's: Vital Signs Temp Pulse Resp BP Pulse Ox 98.2 F 96 16 131/97 H 96 04/30/19 03:00 04/30/19 03:00 04/30/19 03:00 04/30/19 03:00 04/30/19 03:00 Oxygen Delivery Method Room Air Weight: 72.6 kg Body Mass Index (BMI) 22.9 Intake and Output for Last 24 Hours 04/28/19 04/29/19 04/30/19 23:59 23:59 23:59 Intake Total 4070.0 / 4070.0 1840 / 1840 Output Total 500 / 500 2200 / 2200 Balance 3570.0 / 3570.0 -360 / -360 Laboratory Results 04/30/19 02:55: Urine Color Yellow, Urine Clarity Clear, Urine pH 6.5, Ur Specific [place] 1.010, Urine Protein Negative, Urine Glucose (UA) Normal, Urine Ketones Negative, Urine Occult Blood Negative, Urine Nitrite Negative, Urine Bilirubin 1 H, Urine Urobilinogen 8 H, Ur Leukocyte Esterase Negative, Urine RBC 0 SEEN, Urine WBC 0 SEEN, Ur Squamous Epith Cells 0 SEEN, Amorphous Sediment RARE, Urine Bacteria 0 SEEN, Urine Mucus 0 SEEN 04/30/19 06:10: WBC 6.4, RBC 4.05 L, Hgb 12.0 L, Hct 34.3 L, MCV 84.7, MCH 29.6, MCHC 35.0, RDW Std Deviation 54.5 H, RDW Coeff of Jass 17.5 H, Plt Count 276, MPV 11.1, Immature Gran % (Auto) 0.500, Neut % (Auto) 49.9, Lymph % (Auto) 36.3, [place] % (Auto) 10.5 H, Eos % (Auto) 2.5, Baso % (Auto) 0.3, Absolute Neuts (auto) 3.2, Absolute Lymphs (auto) 2.33, Nucleated RBC % 0 04/30/19 06:10: Sodium 141, Potassium 3.1 L, Chloride 108 H, Carbon Dioxide 29.0, Anion Gap 4 L, BUN 5 L, Creatinine 0.54 L, Estim Creat Clear Calc 181.13, Est GFR (MDRD) Af Amer 214, Est GFR (MDRD) Non-Af 177, BUN/Creatinine Ratio 9.3 L, Glucose 110 H, Calcium 7.3 L, Magnesium 1.7, Total Bilirubin 3.00 H, Direct Bilirubin 2.43 H, AST 117 H, ALT 708 H, Alkaline Phosphatase 215 H, Total Protein 6.0 L, Albumin 2.0 L, Globulin 4.0 Current Medications Enoxaparin Sodium (Lovenox) 40 mg SC DAILY [facility] Last Admin: 04/29/19 10:08 Dose: 40 mg Documented by: Sodium Chloride () 1,000 mls @ 150 mls/hr IV .Q6H40M [facility] Last Admin: 04/30/19 05:42 Dose: 150 mls/hr Documented by: Sodium Chloride () 250 mls @ 15 mls/hr IV .[id number] PRN PRN Reason: Saline Flush Pantoprazole Sodium 40 mg/ (Sodium Chloride) 110 mls @ 330 mls/hr IV Q12 [facility] Last Infusion: 04/29/19 22:53 Dose: Infused Documented by: Ketorolac Tromethamine (Toradol) 15 mg IV Q6H PRN PRN PRN Reason: Pain/Inflammation Stop: 05/04/19 08:54 Last Admin: 04/29/19 09:50 Dose: 15 mg Documented by: Nicotine (Nicoderm Cq (Pbkc)) 21 mg TRANSDERM. DAILY [facility] Ondansetron HCl (Zofran) 4 mg IV Q8H PRN PRN PRN Reason: NAUSEA/VOMITING Sodium Chloride () 10 - 40 ml IV UD PRN PRN Reason: SALINE FLUSH Throat Lozenges (Cepacol Sore Throat Lozenge) 2 lozenge MUCOUS MEM Q2H PRN PRN PRN Reason: sore throat, cough Medical Necessity - Tobacco Use Smoking Status: Current every day smoker Tobacco Use: Cigarettes Assessment/Plan All Active Problems Small bowel obstruction (Acute) Patient is a 44-year-old gentleman with history of IVDA admitted with abdominal pain and jaundice. CT of the abdomen was suspicious for small bowel obstruction/partial small bowel obstruction. Patient in addition was found to have elevated liver function tests consistent with acute hepatitis admitted to regular nursing for further management 1. Acute hepatitis ?Suspected to be viral in etiology CT of the abdomen obtained demonstrated demonstrated portal hepatic edema ?04/30/2019. Results of acute viral hepatitis panel pending 2. Partial small bowel obstruction to be secondary to adhesions with the patient previous history of appendectomy ?Managed conservatively with NG tube to suction IV fluids and bowel rest. ?04/30/2019: Patient small bowel obstruction resolved, NG tube removed started on clear liquids 3. History of IVDA ~With recent evaluation in the ED in January 2019 for opioid overdose 4. DVT prophylaxis ~ on enoxaparin 5. Tobacco dependence ~counseled on cessation, offered nicotine patch for tobacco cravings Code Visit Inpatient E&M: 09443 Subs Hosp L2
--- NOTE | 2019-04-30 10:00 | NURSING ---
At 0940 patient came to nurses station insisting to go outside and smoke. IV removed prior to leaving floor.
[2019-04-30 11:28] LABS: Hep C Antibodies >11.0 s/co ratio (0.0-0.9)
--- NOTE | 2019-04-30 11:34 | NURSING ---
1000- pt requesting to leave floor to walk out girlfriend. sl dc'd per charge as per hx and protocol. pt aware that has to return and not to eat anything while down and that is a smoke free facility. pt agreeable but ama papers signed as well.
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
--- NOTE | 2019-04-30 11:41 | NURSING ---
sister called back and reported that he has left the building and got picked up so wont be coming back
--- NOTE | 2019-04-30 12:00 | PCM.DC.SUM ---
Discharge Date and Diagnosis Date of Admission: 04/29/19 Date of Discharge: 04/30/19 Hospital Course and Treatment Imaging Results: 04/30/19 05:55 Abd Decub and/or Erect(Portabl [RAD] AM (NON MEDS) Summary of Care Provided: Patient is a 44-year-old gentleman with history of IVDA admitted with abdominal pain and jaundice. CT of the abdomen was suspicious for small bowel obstruction/partial small bowel obstruction. Patient in addition was found to have elevated liver function tests consistent with acute hepatitis admitted to regular nursing for further management 1. Acute hepatitis ?Suspected to be viral in etiology CT of the abdomen obtained demonstrated demonstrated portal hepatic edema ?04/30/2019. An acute viral hepatitis came back positive for both hep A and hep C. Patient however signed out AGAINST MEDICAL ADVICE before the results could be related to him. 2. Partial small bowel obstruction to be secondary to adhesions with the patient previous history of appendectomy ?Managed conservatively with NG tube to suction IV fluids and bowel rest. ?04/30/2019: Patient small bowel obstruction resolved, NG tube removed started on clear liquids 3. History of IVDA ~With recent evaluation in the ED in January 2019 for opioid overdose 4. DVT prophylaxis ~ on enoxaparin 5. Tobacco dependence ~counseled on cessation, offered nicotine patch for tobacco cravings - Physical Exam Vitals/I&O's: Vital Signs Temp Pulse Resp BP Pulse Ox 98.3 F 81 16 133/79 H 100 04/30/19 09:00 04/30/19 09:00 04/30/19 09:00 04/30/19 09:00 04/30/19 09:00 Oxygen Delivery Method Room Air Weight: 72.6 kg Body Mass Index (BMI) 22.9 Intake and Output for Last 24 Hours 04/28/19 04/29/19 04/30/19 23:59 23:59 23:59 Intake Total 4070.0 / 4070.0 2447.5 / 2447.5 Output Total 500 / 500 2200 / 2200 Balance 3570.0 / 3570.0 247.5 / 247.5 Laboratory Results 04/29/19 05:55: Hepatitis A IgM Ab Positive H, Hep Bs Antigen Negative, Hep B Core IgM Ab Negative, Hepatitis C Ab (EIA) >11.0 H 04/30/19 02:55: Urine Color Yellow, Urine Clarity Clear, Urine pH 6.5, Ur Specific [place] 1.010, Urine Protein Negative, Urine Glucose (UA) Normal, Urine Ketones Negative, Urine Occult Blood Negative, Urine Nitrite Negative, Urine Bilirubin 1 H, Urine Urobilinogen 8 H, Ur Leukocyte Esterase Negative, Urine RBC 0 SEEN, Urine WBC 0 SEEN, Ur Squamous Epith Cells 0 SEEN, Amorphous Sediment RARE, Urine Bacteria 0 SEEN, Urine Mucus 0 SEEN 04/30/19 06:10: WBC 6.4, RBC 4.05 L, Hgb 12.0 L, Hct 34.3 L, MCV 84.7, MCH 29.6, MCHC 35.0, RDW Std Deviation 54.5 H, RDW Coeff of Jass 17.5 H, Plt Count 276, MPV 11.1, Immature Gran % (Auto) 0.500, Neut % (Auto) 49.9, Lymph % (Auto) 36.3, [place] % (Auto) 10.5 H, Eos % (Auto) 2.5, Baso % (Auto) 0.3, Absolute Neuts (auto) 3.2, Absolute Lymphs (auto) 2.33, Nucleated RBC % 0 04/30/19 06:10: Sodium 141, Potassium 3.1 L, Chloride 108 H, Carbon Dioxide 29.0, Anion Gap 4 L, BUN 5 L, Creatinine 0.54 L, Estim Creat Clear Calc 181.13, Est GFR (MDRD) Af Amer 214, Est GFR (MDRD) Non-Af 177, BUN/Creatinine Ratio 9.3 L, Glucose 110 H, Calcium 7.3 L, Magnesium 1.7, Total Bilirubin 3.00 H, Direct Bilirubin 2.43 H, AST 117 H, ALT 708 H, Alkaline Phosphatase 215 H, Total Protein 6.0 L, Albumin 2.0 L, Globulin 4.0 Discharge Diet: No Restrictions Discharge Activity: Return to Normal Activity Home Medications: Medications to take at Discharge NK 04/29/19 Primary Care Physician: Care Physician,No Primary [Primary Care Provider] - Disposition: Against Medical Advice Minutes spent on discharge:: 35 Patient Condition:: Stable Medical Necessity - Tobacco Use Smoking Status: Current every day smoker Tobacco Use: Cigarettes Meaningful Use Info Meaningful Use Diagnoses (Choose all that apply): None applicable Code Visit Inpatient E&M: 28438 Disch Hosp
--- NOTE | 2019-04-30 12:23 | NURSING ---
dr yoon aware that pt left [facility] and of hep a and hep c findings.
== END 2019-04-30 09:40 | disposition left against medical advice (07) | DRG 442 ==
LOC: ED 04:11 → PCU 06:36
PROVIDERS: Admitting Provider Family Medicine; Emergency Provider Emergency Medicine; Visit Provider Internal Medicine
DX: B17.9 Acute viral hepatitis, unspecified (principal); K56.51 Intestinal adhesions [bands], with partial obstruction; F17.210 Nicotine dependence, cigarettes, uncomplicated
CPT/HCPCS: 36415; 74018; 74019; 74177; 80048; 80074; 80076; 81001; 83605; 83690; 83735; 85025; 85610; 85730; 94640; 97802; 99285; J7030; Q9967; A4216; J2405

== ENCOUNTER 2019-09-18 12:23 | Emergency (ER) | payer SELFPAY ==
[2019-09-18 12:23] VITALS: BMI 23.2
[2019-09-18 12:24] VITALS: BP 155/81; PULSE 118; RESP 18; TEMP 36.6; O2SAT 98; BMI 23.3
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
[2019-09-18 14:21] VITALS: BP 131/74; PULSE 82; RESP 16; O2SAT 97
--- NOTE | 2019-09-18 14:22 | ED.RN ---
THIS NURSE REVIEWED D/C INSTRUCTIONS WITH PT. PT VERBALIZED UNDERSTANDING OF INSTRUCTIONS. PT DENIES FURTHER NEEDS OR QUESTIONS AT THIS TIME.
== END 2019-09-18 14:23 | disposition home or self-care (01) ==
PROVIDERS: Emergency Provider Emergency Medicine
DX: S20.211A Contusion of right front wall of thorax, initial encounter (principal); Y04.0XXA Assault by unarmed brawl or fight, initial encounter; Y93.89 Activity, other specified; Y92.009 Unspecified place in unspecified non-institutional (private) residence as the place of occurrence of the external cause; F17.200 Nicotine dependence, unspecified, uncomplicated
CPT/HCPCS: 71101; 99283

== ENCOUNTER 2019-10-28 06:35 | Emergency (ER) | payer SELFPAY ==
[2019-10-28 06:35] VITALS: BP 123/83; PULSE 78; RESP 15; TEMP 35.8; O2SAT 100; BMI 23.3
--- NOTE | 2019-10-28 07:12 | EKG12_ITS ---
Test Reason : OD Blood Pressure : / mmHG Vent. Rate : 082 BPM Atrial Rate : 082 BPM P-R Int : 148 ms QRS Dur : 100 ms QT Int : 422 ms P-R-T Axes : 072 036 018 degrees QTc Int : 493 ms Normal sinus rhythm Right atrial enlargement Moderate voltage criteria for LVH, may be normal variant Prolonged QT Abnormal ECG Confirmed by FLORENTINO COOK ([id number]), graphics editor PAUL BLOUNT ([id number]) on 11/05/2019 7:47:03 AM Referred By: KRISTIN Confirmed By:FLORENTINO COOK
[2019-10-28 07:37] LABS: Absolute Lymphocyte Count 1.29 X10^3/uL (0.83-4.51); Basophil# 0.04 X10^3/uL; Basophil% 0.4 % (0-1); Eosinophil# 0.09 X10^3/uL; Hematocrit 41.7 % (40-54); Hemoglobin 13.8 g/dL (13.0-16.5); Lymphocyte # 1.29 X10^3/ul (4.0); Lymphocyte % 13.7 % (19-41); Mean Corp Hgb Conc 33.1 g/dL (32-36); Mean Corpuscular Hgb 31.1 pg (27.0-32.0); Mean Corpuscular Volume 93.9 fL (80-94); Mean Platelet Vol. 9.8 fl (6.2-12.0); Monocyte# 0.98 X10^3/uL; Monocyte% 10.4 % (0-10); NRBC Flagged by Analyzer 0 % (0-5); Neutrophil # 6.98 X10^3/uL (2.7-7.7); Neutrophil % 74.3 % (47-70); Platelet Count 321 K/mm3 (150-450); RBC Distribution Width CV 12.5 % (11.6-14.6); RBC Distribution Width SD 43.4 fl (35.1-43.9); Red Blood Count 4.44 M/mm3 (4.6-6.2); White Blood Count 9.4 K/mm3 (4.4-11.0)
[2019-10-28 07:41] VITALS: BP 133/89; PULSE 83; RESP 18; O2SAT 98
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
[2019-10-28 07:58] LABS: ALB/GLOB Ratio 0.8 RATIO (0.9-2.4); AST(SGOT) 117 U/L (15-37); Alanine Aminotransfer ALT/SGPT 358 U/L (16-61); Albumin, Serum 3.3 g/dL (3.2-5.0); Alkaline Phosphatase 130 U/L (45-117); Anion Gap 5 (5-15); BUN 16 mg/dL (7-18); BUN/Creat Ratio 18.8 RATIO (10-20); Calcium,Total 8.1 mg/dL (8.5-10.1); Chloride 105 mmol/L (98-107); Creatinine, Serum 0.85 mg/dL (0.70-1.30); EST Glomerular Filtration Rate 104 mL/min (>60); Est Glom Filt Rate - Afr Amer 126 mL/min (>60); Globulin 4.4 g/dL (2.2-4.2); Glucose 123 mg/dL (74-106); Lipase 63 U/L (73-393); Potassium 3.5 mmol/L (3.5-5.1); Protein, Total 7.7 g/dL (6.4-8.2); Sodium Level 141 mmol/L (136-145)
[2019-10-28] MEDS: 0.9% Normal Saline 1,000 ML 999 ML IV (08:47)
[2019-10-28] MEDS: Ondansetron 4 MG/2 ML Vial IV (08:48)
[2019-10-28 08:49] VITALS: BP 131/90; PULSE 78; RESP 14; O2SAT 98
--- NOTE | 2019-10-28 08:51 | ED.RN ---
PT UNABLE TO VOID AT THIS TIME. PT HAS FLUIDS INFUSING. PHYSICIAN AWARE AND STATED A UA/TOX WAS NOT NEEDED. PT GIVEN NAUSEA MEDS
[2019-10-28 09:26] VITALS: BP 126/86; PULSE 75; RESP 13; O2SAT 97
[2019-10-28 10:44] VITALS: BP 124/83; PULSE 73; RESP 14; O2SAT 98
== END 2019-10-28 12:16 | disposition home or self-care (01) ==
LOC: ED 09:22
PROVIDERS: Emergency Provider Emergency Medicine
DX: F15.10 Other stimulant abuse, uncomplicated (principal); F17.200 Nicotine dependence, unspecified, uncomplicated
CPT/HCPCS: 80048; 80053; 80320; 83690; 84484; 85025; 93005; 96361; 96374; 99285; J7030; A4216; G0480; J2405

== ENCOUNTER 2022-01-02 13:32 | Emergency (ER) | payer MEDICAID, SELFPAY ==
[2022-01-02 13:33] VITALS: BP 151/109; PULSE 87; RESP 14; TEMP 36.3; O2SAT 99; BMI 21.6
[2022-01-02 13:37] VITALS: BP 151/109; PULSE 89; RESP 11; O2SAT 97
[2022-01-02 14:52] VITALS: BP 156/102; PULSE 75; RESP 23; O2SAT 100
--- NOTE | 2022-01-02 15:55 | EDS_ITS ---
HPI History of Present Illness Chief Complaint: Overdose Informant: patient and EMS Onset/Context/Timing Onset: Today Context: Sudden Onset Timing: Intermittent Quality: Unresponsive Location: Generalized Worsened by: Nothing Relieved by: Nothing Associated Symptoms Associated Symptoms: Positive for change in mental status; Negative for vomiting*, diarrhea*, fever*, rash*, seizure, tremor, palpatations, trauma, suicidal ideation or homicidal ideation Prehospital Treatment: Naloxone Narrative Narrative: Patient presents with overdose that occurred today. Patient states he normally injects methamphetamines. Patient states that today after he injected, he became unresponsive. EMS was called and they administered a total of 8 mg of Narcan. Patient awoke after this. Patient states he does not normally inject opiates. Patient denies any headaches. Patient denies any fevers but admits to some subjective chills. Patient also admits to some rhinorrhea. [facility] Medical History Smoker Substance abuse Home Medications NK 10/28/19 [History Last Taken Unknown] Allergy/AdvReac Type Severity Reaction Status Date / Time No Known Allergies Allergy Verified 10/28/19 06:41 Surgical History no surgical history no surgical history Social History Smoking Status: Current every day smoker tobacco type: cigarettes ROS ROS ED Constitutional Constitutional ED: Reports chills and subjective; Denies fever(s) Eyes Eyes: Denies blurry vision or change in vision ENT ENT ED: Reports rhinorrhea; Denies sore throat Cardiovascular Cardiovascular: Denies chest pain or palpitations Respiratory/Chest Respiratory/Chest: Denies cough or dyspnea Gastrointestinal Gastrointestinal: Reports nausea; Denies vomiting Genitourinary Genitourinary ED: Denies dysuria or hematuria Musculoskeletal Musculoskeletal: Denies back pain or neck pain Integumentary Denies abscess or rash Neurologic Neurologic: Denies headache(s) or weakness Allergic/Immunologic Allergic/Immunologic ED: Denies mouth swelling or urticaria EXAM Physical Exam Const Vital Signs: 01/02/22 13:33 01/02/22 13:37 01/02/22 14:52 Temperature 97.4 F L Temperature Source Temporal Pulse Rate 87 89 75 Respiratory Rate 14 11 L 23 H Blood Pressure 151/109 H 151/109 H 156/102 H Blood Pressure Mean 123 123 120 Pulse Ox 99 97 100 Oxygen Delivery Method Room Air Room Air Room Air Positive well nourished and well developed General Appearance ED: well developed and NAD HEENT Reports moist mucous membranes Neck supple and no JVD Resp normal respiratory effort and clear to auscultation bilaterally Cardio regular rate, regular rhythm and no murmurs GI normal to inspection, nondistended, normoactive bowel sounds and non-tender Palpation: soft Extremity normal to inspection General Extremety ED: Negative for edema or tenderness General Extremity: Negative for edema Neuro oriented x3, CN's II-XII intact bilaterally and no sensory deficits noted Sensorium / Orientation: alert Motor Exam: strength 5/5 throughout Psych mental status grossly normal Skin no rashes or lesions noted MDM MDM MDM Narrative Medical decision making narrative: Patient was observed here in the emergency department for over 2 hours. He had no further episodes of unresponsiveness. Oxygen saturation remained 100% on room air. Patient is feeling better on reevaluation. Patient was given a referral for 180. Patient was instructed to follow-up in 7 to 10 days. Patient was instructed return if worse in any way. Patient understood and was agreeable with the plan. All questions were answered. Discharge Plan Triage Chief Complaint: Overdose ED Provider: Dave Madrid Dx/Rx/DC Orders Clinical Impression: Opiate overdose, Substance abuse Instructions: ED Drug Abuse, ED Overdose, Opiate Prescriptions: No Action NK Primary Care Provider: Care Physician,No Primary Referrals: Care Physician,No Primary [Primary Care Provider] - [facility] [NON-STAFF] - 5-7 Days Disposition Disposition: Home, Self Care
--- NOTE | 2022-01-02 16:00 | CM.ED ---
DIAZ met with patient as patient was an overdose. Patient was asked if he wanted information about [facility] and he agreed. DIAZ provided patient with [facility] Healthcare Provider list. No other concerns or issues voiced. DIAZ remains available. Niki ANDERSON
[2022-01-02 16:03] VITALS: BP 149/100; PULSE 86; RESP 14; O2SAT 97
== END 2022-01-02 16:10 | disposition home or self-care (01) ==
PROVIDERS: Emergency Provider Emergency Medicine; Visit Provider Emergency Medicine
DX: T40.601A Poisoning by unspecified narcotics, accidental (unintentional), initial encounter (principal); F15.10 Other stimulant abuse, uncomplicated; R40.4 Transient alteration of awareness; F17.210 Nicotine dependence, cigarettes, uncomplicated
CPT/HCPCS: 99284

== ENCOUNTER 2022-07-29 05:42 | Inpatient (IN) | payer MEDICAID, SELFPAY ==
[2022-07-29] VITALS (7 sets, daily range): BP systolic 140–175; BP diastolic 78–102; PULSE 96–101; RESP 16–18; TEMP 36.6–37.4; O2SAT 95–100; BMI 24.3
--- NOTE | 2022-07-29 05:59 | CT_ITS ---
EXAM: CT ABDOMEN AND PELVIS WITH INTRAVENOUS CONTRAST CLINICAL INDICATION: pain TECHNIQUE: Helically acquired images were obtained of the abdomen and pelvis with intravenous contrast. This CT exam was performed using one or more of the following dose reduction techniques: automated exposure control, adjustment of the mA and/or kV according to patient size, and/or use of iterative reconstruction technique. This report was created using [employer] report generation technology. CONTRAST: 100 cc of Isovue-370 IV. RADIATION DOSE: CTDIvol = 14.43 mGy, DLP = 621.33 mGy-cm. COMPARISON: 04/29/2019. FINDINGS: LOWER THORAX: Unremarkable. Lung bases are clear. No cardiomegaly. No significant pericardial effusion. ABDOMEN: LIVER: Unremarkable. Homogeneous. No focal mass. GALLBLADDER AND BILE DUCTS: Unremarkable. No calcified gallstones. No gallbladder distention or wall edema. No intra- or extrahepatic biliary ductal dilation. PANCREAS: Unremarkable. No focal cystic or solid mass. SPLEEN: Unremarkable. Normal size without focal cystic or solid mass. ADRENALS: Unremarkable. No nodules. KIDNEYS AND URETERS: Unremarkable. Normal renal size and position. No hydronephrosis. STOMACH AND BOWEL: Proximal and mid small bowel loops are dilated up to 3 cm. There are distal small bowel loops that are collapsed. Point of transition appears to be in the right lower abdomen. The stomach is very distended similar to the prior exam. No focal inflammatory change. PELVIS: APPENDIX: Probable status post appendectomy. BLADDER: Unremarkable. REPRODUCTIVE: Unremarkable as visualized. No mass. ABDOMEN and PELVIS: INTRAPERITONEAL SPACE: Unremarkable. No ascites or other fluid collection. No free air. BONES/JOINTS: Unremarkable. No suspicious lytic or blastic abnormality. SOFT TISSUES: Unremarkable. No discrete abdominal or pelvic wall hernia. VASCULATURE: Unremarkable. Abdominal aorta is non-dilated. LYMPH NODES: Unremarkable. No enlarged lymph nodes. CT/Abdomen/Pelvis W IV Cont ONLY IMPRESSION: Findings suspicious for distal small bowel obstruction with transition point in the right lower abdomen. Electronically Signed: Henry Flores MD at 6:48 EST ,
[2022-07-29] MEDS: 0.9% Normal Saline 1,000 ML 1000 ML IV (06:04)
[2022-07-29] MEDS: Ondansetron 4 MG/2 ML Vial IV ×2 (06:04→18:04)
--- NOTE | 2022-07-29 06:04 | EDS_ITS ---
HPI History of Present Illness Chief Complaint: Nausea/Vomiting/Diarrhea Informant: patient Narrative Narrative: Patient presents with abdominal pain nausea vomiting and diarrhea. He thinks this likely started somewhere on . He is not sure which started first. He states he is actually vomited one time but he is very nauseated and really is not eating or drinking because of this. He has significant acid reflux with very sour acid taste in his throat. He does not normally have this. He has had multiple episodes of watery nonbloody diarrhea. He has had no fevers. Only abdominal surgeries appendectomy. He does not drink alcohol. No history of pancreatitis. No back or flank pain. [facility] Medical History Smoker Substance abuse Home Medications NK 10/28/19 [History Last Taken Unknown] Allergy/AdvReac Type Severity Reaction Status Date / Time No Known Allergies Allergy Verified 10/28/19 06:41 Social History Smoking Status: Current every day smoker tobacco type: cigarettes ROS ROS ED Constitutional Constitutional ED: Denies fever(s) or subjective ENT ENT ED: Reports other Details: Sour/acid taste in throat but no pain. ; Denies rhinorrhea or sore throat Cardiovascular Cardiovascular: Denies chest pain, palpitations or racing heartbeat Respiratory/Chest Respiratory/Chest: Denies cough or dyspnea Gastrointestinal Gastrointestinal: Reports abdominal pain, diarrhea, nausea and vomiting; Denies constipation or melena Genitourinary Genitourinary ED: Denies dysuria or hematuria Musculoskeletal Musculoskeletal: Denies myalgias Integumentary Denies rash Neurologic Neurologic: Denies headache(s) Endocrine Endocrinology: Denies polydipsia or polyuria Hematologic/Lymphatic Hematologic/Lymphatic: Denies easy bleeding or easy bruising Allergic/Immunologic Allergic/Immunologic ED: Denies urticaria EXAM Physical Exam Narrative Exam Narrative: Patient awake alert sitting in bed. He has emesis bag but is not vomiting or dry heaving. Looks nontoxic. HEENT does show dry mucous membranes but no exudate. Neck is supple. Lungs are clear bilaterally no pain with a deep breath and his saturations are normal at 100% on room air showing no hypoxia. Heart is regular with a rate about 100. No murmur gallop rub. Peripheral pulses are normal x4. Abdomen is soft. It does have bowel sounds it might even be slightly increased. It is mildly distended. There is really no area of focal tenderness. Patient states is just sore all over but there is no area that is notably tender. There is no rebound guarding or hernia that is felt. shows no suprapubic or CVA tenderness. Extremities show no sign of swelling tenderness or asymmetry. He has tattoos but no visible rashes. Const Vital Signs: 07/29/22 05:42 Temperature 97.8 F Temperature Source Temporal Pulse Rate 101 H Respiratory Rate 18 Blood Pressure 140/102 H Blood Pressure Mean 114 Pulse Ox 100 Oxygen Delivery Method Room Air MDM MDM MDM Narrative Medical decision making narrative: My independent interpretation of the patient's CT shows small bowel obstruction with a very large stomach. Similar reading by radiology. White count was elevated at 14.2. Hemoglobin is normal. Electrolytes show no marked abnormalities but he is somewhat dehydrated with a high BUN to creatinine ratio. This is treated with IV fluids. Glucose is minimally up at 130. Liver function test are not showing any marked abnormalities. Lipase is normal. I discussed the case with surgery, Dr. Smallwood. Plan will be to admit to her. We did discuss putting an NG tube in as I think this will help the patient quite a bit. I did discuss this with him. He did not seem happy but he did agree to it. Evidently last time he was admitted for this he ended up pulling the NG out and leaving. Lab Data Attestation: I reviewed the patient's lab results. Labs: Laboratory Results - last 24 hr 07/29/22 07/29/22 05:55 05:55 WBC 14.2 H RBC 5.32 Hgb 16.2 Hct 48.7 MCV 91.5 MCH 30.5 MCHC 33.3 RDW Std Deviation 43.4 RDW Coeff of Jass 12.9 Plt Count 378 MPV 9.7 Immature Gran % (Auto) 0.500 Neut % (Auto) 83.0 H Lymph % (Auto) 5.8 L Martin % (Auto) 5.9 Eos % (Auto) 4.4 Baso % (Auto) 0.4 Absolute Neuts (auto) 11.8 H Absolute Lymphs (auto) 0.82 L Nucleated RBC % 0 Sodium 137 Potassium 4.2 Chloride 104 Carbon Dioxide 25.0 Anion Gap 8 BUN 28 H Creatinine 1.00 Estim Creat Clear Calc 92.30 Est GFR (MDRD) Af Amer 103 Est GFR (MDRD) Non-Af 85 BUN/Creatinine Ratio 28.0 H Glucose 130 H Calcium 9.1 Total Bilirubin 0.40 AST 31 ALT 63 H Alkaline Phosphatase 107 Total Protein 8.9 H Albumin 3.8 Globulin 5.1 H Albumin/Globulin Ratio 0.7 L Lipase 119 Radiography Diagnostic Testing: Clinical Impression(s) from Imaging Studies Abdomen/Pelvis CT 07/29/22 05:59 IMPRESSION: Findings suspicious for distal small bowel obstruction with transition point in the right lower abdomen. Electronically Signed: Henry Flores MD at 6:48 EST , Management Discussion w/another healthcare provider: [employer] Discharge Plan Dx/Rx/DC Orders Clinical Impression: Small bowel obstruction, Nausea & vomiting, Leukocytosis Disposition Disposition: Acute Care Hospital [facility]
[2022-07-29 06:06] LABS: Absolute Lymphocyte Count 0.82 X10^3/uL (0.83-4.51); Absolute Neutrophil Count 11.8 X10^3/uL (2.0-7.7); Basophil# 0.05 X10^3/uL; Basophil% 0.4 % (0-1); Eosinophil# 0.63 X10^3/uL; Eosinophils% 4.4 % (0-5); Hematocrit 48.7 % (40-54); Hemoglobin 16.2 g/dL (13.0-16.5); Lymphocyte # 0.82 X10^3/ul (0.83-4.51); Lymphocyte % 5.8 % (19-41); Mean Corp Hgb Conc 33.3 g/dL (32-36); Mean Corpuscular Hgb 30.5 pg (27.0-32.0); Mean Corpuscular Volume 91.5 fL (80-94); Mean Platelet Vol. 9.7 fl (6.2-12.0); Monocyte# 0.83 X10^3/uL; Monocyte% 5.9 % (0-10); NRBC Flagged by Analyzer 0 % (0-5); Neutrophil # 11.78 X10^3/uL (2.7-7.7); Platelet Count 378 K/mm3 (150-450); RBC Distribution Width CV 12.9 % (11.6-14.6); RBC Distribution Width SD 43.4 fl (35.1-43.9); Red Blood Count 5.32 M/mm3 (4.6-6.2); White Blood Count 14.2 K/mm3 (4.4-11.0)
[2022-07-29 06:46] LABS: ALB/GLOB Ratio 0.7 RATIO (0.9-2.4); AST(SGOT) 31 U/L (15-37); Alanine Aminotransfer ALT/SGPT 63 U/L (16-61); Albumin, Serum 3.8 g/dL (3.2-5.0); Alkaline Phosphatase 107 U/L (45-117); Anion Gap 8 (5-15); BUN 28 mg/dL (7-18); Calcium,Total 9.1 mg/dL (8.5-10.1); Chloride 104 mmol/L (98-107); EST Glomerular Filtration Rate 85 mL/min (>60); Est Glom Filt Rate - Afr Amer 103 mL/min (>60); Globulin 5.1 g/dL (2.2-4.2); Glucose 130 mg/dL (74-106); Lipase 119 U/L (73-393); Potassium 4.2 mmol/L (3.5-5.1); Protein, Total 8.9 g/dL (6.4-8.2); Sodium Level 137 mmol/L (136-145)
--- NOTE | 2022-07-29 07:13 | RAD_ITS ---
HISTORY: NG Insertion. TECHNIQUE: XR Abdomen 1 View. COMPARISON: CT earlier same day. FINDINGS: BOWEL GAS PATTERN: Nasogastric tube tip in the left upper quadrant. Dilated stomach and small bowel loops again noted. FREE AIR: No gross free air on upright view. CALCIFICATIONS: Residual contrast in the renal collecting systems, limiting evaluation for calculi. BONES: Old right lateral rib fractures. SOFT TISSUES: Mild atelectasis in the lung bases. RAD/Abdomen Single View (Portable) IMPRESSION: Nasogastric tube tip at the level of the stomach. Persistent small bowel obstruction. Electronically Signed: Carlota English MD at 8:05 EST ,
[2022-07-29] MEDS: Oxymetazoline 0.05% 1 SPRAY SPRAY.BTL 2 SPRAY NASAL (07:24)
[2022-07-29] MEDS: Morphine 4 MG/ML Syringe IV (07:45)
--- NOTE | 2022-07-29 08:26 | HP.PCM.SX_ITS ---
HPI - General General Date of Admission: 07/29/22 HPI Narrative HALEY MORROW, is a 47 M who presents to the ER due to increased abdominal pain. Patient previously had laparoscopic appendectomy in [place]. Patient also was hospitalized for a bowel obstruction in April 2019 which resolved [address] Patient CT abdomen pelvis concerning for small bowel obstruction grossly distended stomach similar to in 2019. Patient did have an NG placed in the ER. Patient did have leukocytosis of 14.2. Patient started to have increasing abdominal pain over the last 2 days per patient's significant other. May have started having some abdominal pain starting last week. Patient states he did have a bowel movement today, unsure about flatus. [facility] Medical History Smoker Substance abuse Home Medications losartan 50 mg tablet 50 mg PO DAILY HTN 07/29/22 [History Last Taken 2 Days Ago ~07/27/22] olanzapine-fluoxetine 6 mg-25 mg capsule 1 cap PO QHS DEPRESSION 07/29/22 [History Last Taken 2 Days Ago ~07/27/22] Allergy/AdvReac Type Severity Reaction Status Date / Time No Known Allergies Allergy Verified 10/28/19 06:41 Social History Smoking Status: Current every day smoker tobacco type: cigarettes ROS Constitutional Constitutional: Reports anorexia Eyes Eyes: Denies change in vision ENT HEENT: Denies dysphagia Cardiovascular Cardiovascular: Denies chest pain Respiratory/Chest Respiratory/Chest: Denies cough Gastrointestinal Gastrointestinal: Reports abdominal pain, diarrhea, nausea and vomiting Genitourinary Genitourinary: Denies difficulty urinating Musculoskeletal Musculoskeletal: Denies difficulty walking Integumentary Integumentary: Denies rash Neurologic Neurologic: Denies focal weakness Psychiatric Psychiatric: Denies depression Hematologic/Lymphatic Hematologic/Lymphatic: Denies easy bleeding Vital Signs Vital Signs Vital Signs: 07/29/22 05:42 07/29/22 07:42 Temperature 97.8 F 97.8 F Temperature Source Temporal Temporal Pulse Rate 101 H 99 Respiratory Rate 18 18 Blood Pressure 140/102 H 145/78 H Blood Pressure Mean 114 100 Pulse Ox 100 98 Oxygen Delivery Method Room Air Room Air Weight Weight: 164 lb 10.965 oz Body Mass Index (BMI) 24.3 Physical Exam Const alert, oriented x3 and no apparent distress HEENT normocephalic and head/scalp atraumatic HEENT Narrative: NG in place Resp normal respiratory effort Cardio regular rate GI soft to palpation Inspection: abdominal distention Palpation: tender RUQ; Negative for guarding Extremity no clubbing, cyanosis or edema Neuro CN's II-XII intact bilaterally Psych mental status grossly normal Results Lab / Micro Data Result Diagrams: 07/29/22 05:55 07/29/22 05:55 Labs: Laboratory Results - last 24 hr 07/29/22 05:55: WBC 14.2 H, RBC 5.32, Hgb 16.2, Hct 48.7, MCV 91.5, MCH 30.5, MCHC 33.3, RDW Std Deviation 43.4, RDW Coeff of Jass 12.9, Plt Count 378, MPV 9.7, Immature Gran % (Auto) 0.500, Neut % (Auto) 83.0 H, Lymph % (Auto) 5.8 L, [place] % (Auto) 5.9, Eos % (Auto) 4.4, Baso % (Auto) 0.4, Absolute Neuts (auto) 11.8 H, Absolute Lymphs (auto) 0.82 L, Nucleated RBC % 0 07/29/22 05:55: Sodium 137, Potassium 4.2, Chloride 104, Carbon Dioxide 25.0, Anion Gap 8, BUN 28 H, Creatinine 1.00, Estim Creat Clear Calc 92.30, Est GFR (MDRD) Af Amer 103, Est GFR (MDRD) Non-Af 85, BUN/Creatinine Ratio 28.0 H, Glucose 130 H, Calcium 9.1, Total Bilirubin 0.40, AST 31, ALT 63 H, Alkaline Phosphatase 107, Total Protein 8.9 H, Albumin 3.8, Globulin 5.1 H, [place] min/Globulin Ratio 0.7 L, Lipase 119 Radiology Impression Abdomen/Pelvis CT 07/29/22 05:59 IMPRESSION: Findings suspicious for distal small bowel obstruction with transition point in the right lower abdomen. Electronically Signed: Henry Flores MD at 6:48 EST , KUB X-Ray 07/29/22 07:13 IMPRESSION: Nasogastric tube tip at the level of the stomach. Persistent small bowel obstruction. Electronically Signed: Carlota English MD at 8:05 EST , Assessment & Plan Assessment/Plan (1) Small bowel obstruction: (2) Leukocytosis: PLAN: Plan We will admit patient and plan to treat conservatively. NG/IV fluids/n.p.o. okay for meds Pain control Encourage ambulation/out of bed to chair We will plan to check a KUB in the morning to possibly do a small bowel follow- through tomorrow. Anna Smallwood M.D. Pager: [phone] [facility] [address] [place] [address], [address] [place] [address] Office: [phone]
[2022-07-29] MEDS: Lactated Ringers 1,000 ML 130 ML IV ×2 (12:00→18:39)
[2022-07-29] MEDS: Losartan Potassium 50 MG Tablet PO (12:18)
[2022-07-29] MEDS: Morphine 2 MG/ML Syringe IV ×3 (13:13→20:01)
[2022-07-29] MEDS: Acetaminophen 325 MG Tablet 650 MG PO (20:09)
[2022-07-29] MEDS: Ketorolac 15 MG/ML Vial IV (21:23)
[2022-07-30 05:06] VITALS: BP 152/88; PULSE 88; RESP 16; TEMP 36.9; O2SAT 97
[2022-07-30] MEDS: Lactated Ringers 1,000 ML 130 ML IV ×2 (05:17→10:45)
--- NOTE | 2022-07-30 05:55 | RAD_ITS ---
STUDY: X-RAY - ABDOMEN/PELVIS REASON FOR EXAM: Male, 47 years old. sbo -- portable TECHNIQUE: Single AP view of the abdomen / pelvis. COMPARISON: Comparison is made with prior study dated July 29, 2022. FINDINGS: The tip of the nasogastric tube is seen in the fundal portion of the stomach. Gas is seen throughout the colon down to the level of the rectum. Gas is seen throughout the colon down to the rectum. Surgical clips are seen in the right lower quadrant. Normal soft tissue structures. Normal visualized osseous structures. RAD/Abdomen Single View (Portable) IMPRESSION: Moderate amount of fecal material is seen in the colon. Electronically Signed: Aramis Schaefer MD at 8:20 EST ,
[2022-07-30] MEDS: Morphine 2 MG/ML Syringe IV (07:00)
--- NOTE | 2022-07-30 07:09 | PCM.PN.SRG ---
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 Objective Data Objective Data Vital Signs: Vital Signs Temp Pulse Resp BP Pulse Ox O2 Del Method 98.5 F 88 16 152/88 H 97 Room Air 07/30/22 05:06 07/30/22 05:06 07/30/22 05:06 07/30/22 05:06 07/30/22 05:06 07/30/22 05:06 Oxygen Delivery Method Room Air Weight: 165 lb Body Mass Index (BMI) 24.3 Intake & Output: Intake and Output for Last 24 Hours 07/28/22 07/29/22 07/30/22 23:59 23:59 23:59 Intake Total 2079.5 / 2139.5 1110 / 1110 Output Total 250 / 251 101 / 101 Balance 1829.5 / 1888.5 1009 / 1009 Lab / Micro Data Result Diagrams: 07/30/22 10:03 07/30/22 10:03 Radiography Diagnostic Testing: Radiology Impression KUB X-Ray 07/29/22 07:13 IMPRESSION: Nasogastric tube tip at the level of the stomach. Persistent small bowel obstruction. Electronically Signed: Carlota English MD at 8:05 EST , Physical Exam Narrative NG in place Const oriented x3 and no apparent distress Resp normal respiratory effort Cardio regular rate GI soft to palpation Inspection: Negative for abdominal distention Palpation: tender RUQ (Minimal, no PS) Assessment & Plan Assessment/Plan (1) Small bowel obstruction: (2) Leukocytosis: PLAN: Plan We will admit patient and plan to treat conservatively. NG/IV fluids/n.p.o. okay for meds Pain control Encourage ambulation/out of bed to chair We will order small bowel follow-through with Gastrografin today. Addendum: Gastrografin made to the colon in less than 2 hours. We will remove NG and start clears. Anna Smallwood M.D. Pager: [phone] [facility] [address] [place] [address], [facility], [address] [place], [place] [id number] Office: [phone]
--- NOTE | 2022-07-30 08:10 | RAD_ITS ---
STUDY: SMALL BOWEL FOLLOW-THROUGH EXAMINATION. REASON FOR EXAM: Male, 47 years old. sbo, gastrografin TECHNIQUE: Gastrografin was introduced through the indwelling nasogastric tube. COMPARISON: None. FINDINGS: The patient is status post appendectomy. No evidence of small bowel dilatation. Gastrografin is seen throughout the entire colon down to the rectum by 2 hours. RAD/Small Bowel Series Only IMPRESSION: No evidence of a small bowel dilatation or small bowel obstruction at this time. Electronically Signed: Aramis Schaefer MD at 11:16 EST ,
--- NOTE | 2022-07-30 10:13 | CASEMGMT ---
RAVI MERINO Assessment: Face to Face with pt for initial transition planning/care coordination assessment. RAVI MERINO introduced self and role at [facility], pt voices understanding and consents to assessment. Pt is A/O x4 and answers all questions appropriately at this time. Pt lying in bed with NG in in no distress with girlfriend Thi Dave at bedside. Pt agreeable to assessment with her present. Care providers, pharmacy, and demographics verified/updated. Admitting Dx: SBO PCP:Pt states he recently started seeing the [facility] clinic. Provided him with a local healthcare directory list as well. Specialists:Psychologist at [facility] Preferred Pharmacy: [facility] Insurance: [employer] Prescription Benefit: yes LNOK: Stanislav Weeks, brother; Yasmeen Estevez, sister Living Arrangements: Pt lives with his niece and some friends in a two story home with 6 steps to enter with a rail. Pt reports he is I in ADL's and denies concerns at home. Transportation: Pt does not have a license. He states that he rides his bike for transportation or uses a cab or a friend. Pt denies concerns with transportation. DME/HHC/SNF: Pt denies having any DME in the home, previous HHC or SNF stays. Pt states no concerns with going home at time of dc. Pt states no further concerns/needs. CM to follow. Advised pt to ask CM if any further question/concerns/needs arise, voices understanding. Pt Goal: Home Plan: Home
[2022-07-30 10:15] LABS: Absolute Lymphocyte Count 1.39 X10^3/uL (0.83-4.51); Absolute Neutrophil Count 5.8 X10^3/uL (2.0-7.7); Basophil# 0.04 X10^3/uL; Basophil% 0.5 % (0-1); Eosinophil# 0.34 X10^3/uL; Hematocrit 46.8 % (40-54); Hemoglobin 15.3 g/dL (13.0-16.5); Lymphocyte # 1.39 X10^3/ul (0.83-4.51); Lymphocyte % 16.3 % (19-41); Mean Corp Hgb Conc 32.7 g/dL (32-36); Mean Corpuscular Hgb 31.2 pg (27.0-32.0); Mean Corpuscular Volume 95.5 fL (80-94); Mean Platelet Vol. 9.7 fl (6.2-12.0); Monocyte% 10.6 % (0-10); NRBC Flagged by Analyzer 0 % (0-5); Neutrophil # 5.84 X10^3/uL (2.7-7.7); Neutrophil % 68.4 % (47-70); Platelet Count 291 K/mm3 (150-450); RBC Distribution Width CV 12.8 % (11.6-14.6); RBC Distribution Width SD 45.1 fl (35.1-43.9); White Blood Count 8.5 K/mm3 (4.4-11.0)
[2022-07-30 10:42] LABS: Anion Gap 7 (5-15); BUN 23 mg/dL (7-18); BUN/Creat Ratio 32.4 RATIO (10-20); Calcium,Total 8.6 mg/dL (8.5-10.1); Chloride 107 mmol/L (98-107); Creatinine, Serum 0.71 mg/dL (0.70-1.30); EST Glomerular Filtration Rate 127 mL/min (>60); Est Glom Filt Rate - Afr Amer 154 mL/min (>60); Glucose 76 mg/dL (74-106); Sodium Level 137 mmol/L (136-145)
[2022-07-30] MEDS: Losartan Potassium 50 MG Tablet PO (10:52)
[2022-07-30 11:06] VITALS: BP 148/78; PULSE 84; RESP 16; TEMP 36.7; O2SAT 98
[2022-07-30 11:32] VITALS: O2SAT 96
--- NOTE | 2022-07-30 13:42 | EX.PCM.DISCH ---
Discharge Instructions Diet Discharge Diet: No restrictions Activity Discharge Activity: No Restrictions Follow Up Care Test Results: Test results from this visit will be discussed in further detail at your follow-up appointment, if applicable. Discharge Plan Admission Admit Date/Time: 07/29/22 08:22 Attending Provider: Anna Smallwood Primary Care Provider: Marla Mckeon Discharge Orders/Prescriptions Prescriptions: Continued losartan 50 mg tablet 50 mg PO DAILY Label Comments: TAKE 1 TABLET BY MOUTH DAILY olanzapine-fluoxetine 6-25 mg capsule 1 cap PO QHS Label Comments: TAKE 1 TABLET BY MOUTH EVERY DAY IN THE EVENING Referrals / Follow Up: Marla Mckeon [Primary Care Provider] - Care Physician,No Primary [Non-Staff] - Disposition Disposition (needs filled in before D/C Order can be placed): Home, Self Care
--- NOTE | 2022-07-30 15:19 | PHA.DC.MR ---
Pharmacy Service has performed discharge medication reconciliation for this patient. No new medications at time of discharge. Medications reviewed are from previously reported home medications. Home Medications losartan 50 mg tablet 50 mg PO DAILY HTN 07/29/22 olanzapine-fluoxetine 6 mg-25 mg capsule 1 cap PO QHS DEPRESSION 07/29/22 The patient's discharge medication list was reviewed for discrepancies and discrepancies were resolved.
[2022-07-30 15:52] VITALS: BP 158/93; PULSE 89; RESP 16; TEMP 36.9; O2SAT 98
== END 2022-07-30 16:30 | disposition home or self-care (01) | DRG 247 ==
LOC: ED 07:19 → MS3 10:09
PROVIDERS: Admitting Provider Surgery; Emergency Provider Emergency Medicine; Visit Provider Surgery
DX: K56.609 Unspecified intestinal obstruction, unspecified as to partial versus complete obstruction (principal); D72.829 Elevated white blood cell count, unspecified; F17.210 Nicotine dependence, cigarettes, uncomplicated; Z90.49 Acquired absence of other specified parts of digestive tract
CPT/HCPCS: 36415; 74018; 74177; 74250; 80048; 80053; 83690; 85025; 94668; 99252; 99285; J7030; J7120; Q9967; A4216; G0463; J2405; J3490

== ENCOUNTER → 2025-05-18 | Outpatient (CLI) | payer MEDICAID, SELFPAY ==
[2025-05-18 16:46] LABS: Hematocrit 42.2 % (40-54); Hemoglobin 14.4 g/dL (13.0-16.5); Immature Granulocytes Count 0.020 X10^3/uL (0.0-0.0); Mean Corp Hgb Conc 34.1 g/dL (32-36); Mean Corpuscular Volume 92.3 fL (80-94); Mean Platelet Vol. 10.2 fl (6.2-12.0); NRBC Flagged by Analyzer 0 % (0-5); Platelet Count 348 K/mm3 (150-450); RBC Distribution Width CV 12.7 % (11.6-14.6); RBC Distribution Width SD 42.8 fl (35.1-43.9); Red Blood Count 4.57 M/mm3 (4.6-6.2); White Blood Count 9.5 K/mm3 (4.4-11.0)
[2025-05-18 17:46] LABS: AST(SGOT) 28 U/L (<=37); Alanine Aminotransfer ALT/SGPT 34 U/L (<=46); Albumin, Serum 4.3 g/dL (3.5-5.0); Alkaline Phosphatase 85 U/L (40-129); Anion Gap 10 (7-18); BUN 17 mg/dL (4-19); BUN/Creat Ratio 19.9 RATIO (10-20); Calcium,Total 9.4 mg/dL (7.6-11.0); Carbon Dioxide 24.9 mmol/L (20.0-29.0); Chloride 106 mmol/L (96-106); Globulin 3.2 g/dL (2.2-4.2); Glucose 80 mg/dL (70-99); HIV Nonreactive (Nonreactive); Potassium 4.5 mmol/L (3.5-5.1); Syphilis Antibodies Nonreactive (Nonreactive)
[2025-05-25 13:08] LABS: HEPATITIS B SURFACE AG Negative (Negative)
== END | disposition home or self-care (01) ==
LOC: VSLAB 13:27
PROVIDERS: Referring Provider Nurse Practitioner Family; Visit Provider Nurse Practitioner Family
DX: I10 Essential (primary) hypertension (principal); F19.20 Other psychoactive substance dependence, uncomplicated
CPT/HCPCS: 36415; 80053; 84443; 85025; 86703; 86705; 86709; 86780; 87340